=== PATIENT | female | born 1965 | race African-American/Black ===

== ENCOUNTER 2016-10-03 10:29 | Emergency (ER) | payer OTHER ==
[~2016-10-03] VITALS: Ht 167.6 cm; Wt 97.0 kg
[~2016-10-03 10:29] MED LIST: LIDODERM 5% P1 PATCH TD; NAPROXEN500 MG PO
[2016-10-03 10:30] VITALS: BP 178/85
[2016-10-03 13:38] LABS: HEMATOCRIT 42.1 % (36.0-46.0); MCH 29.8 PG (29.0-34.0); MCHC 34.2 G/DL (30.0-36.0); MEAN PLAT.VOLUME 11.4 uM^3 (9.5-12.4); PLATELET COUNT 227 K/uL (156-360); RBC DIS.WIDTH-CV 13.8 % (11.8-14.6); RBC DIS.WIDTH-SD 43.5 % (39-53); RED BLOOD COUNT 4.84 M/uL (3.80-5.20); WHITE BLOOD COUNT 10.4 K/uL (4.1-10.2)
[2016-10-03 13:47] LABS: CHLORIDE 104 mEq/L (99-109); POTASSIUM 3.6 mEq/L (3.7-5.4); SODIUM 139 mEq/L (136-147)
[2016-10-03 13:50] LABS: GLUCOSE 136 mg/dL (70-99)
[2016-10-03 13:51] LABS: ANION GAP 9 MEQ/L (2-14); TOTAL BILIRUBIN 0.4 mg/dL (0.0-1.0)
[2016-10-03 13:52] LABS: SERUM ETHYL ALCOHOL < 10 mg/dL
[2016-10-03 13:53] LABS: ALKALINE PHOSPHATASE 102 IU/L (3-129); GFR ESTIMATE (CALCULATED) > 59 mL/min/
[2016-10-03 13:54] LABS: UREA NITROGEN (BUN) 7 mg/dL (9-23)
[2016-10-03 13:56] LABS: ADD MIUA? NO; BILIRUBIN NEGATIVE; BLOOD NEGATIVE; COLOR YELLOW ((YELLOW)); GLUCOSE (STRIP) NEGATIVE; KETONES TRACE; LEUKOCYTES NEGATIVE; NITRITE NEGATIVE; PROTEIN (STRIP) 30; SPECIFIC GRAVITY 1.016 (1.000-1.030); UCUL ADDED? NO; UROBILINOGEN 0.2 MG/DL (0.2-1.0)
[2016-10-03 13:57] LABS: CREATINE KINASE 48 IU/L (1-294); LIPASE 4 U/L (1.0-51.0)
[2016-10-03 14:06] LABS: AMPHETAMINE NEGATIVE (500 ng/mL); BARBITURATES NEGATIVE (200 ng/mL); BENZODIAZEPINES PRESUMPTIVE POSITIVE (150 ng/mL); COCAINE PRESUMPTIVE POSITIVE (150 ng/mL); INTERNAL CONTROLS VALID? YES; METHADONE NEGATIVE (200 ng/mL); METHAMPHETAMINE NEGATIVE (500 ng/mL); OPIATES (MORPHINE) NEGATIVE (100 ng/mL); OXYCODONE NEGATIVE (100 ng/mL); PHENCYCLIDINE NEGATIVE (25 ng/mL); PROPOXYPHENE NEGATIVE (300 ng/mL); THC CANNABINOIDS PRESUMPTIVE POSITIVE (50 ng/mL); TRICYCLIC ANTIDEPRESSANTS NEGATIVE (300 ng/mL)
[2016-10-03 14:07] LABS: ADD MEDTOX COMMENT Y
[2016-10-03] MEDS ORDERED: ZOFRAN4 MG PO (14:18)
[2016-10-03 15:15] LABS: BENZODIAZEPINES, URINE SCREEN POSITIVE (200 ng/mL)
== END 2016-10-03 15:25 | disposition home or self-care (01) ==
LOC: EME → EDBD 10:29 → EME 15:25
PROVIDERS: Emergency Medicine
DX: F19.10 Other psychoactive substance abuse, uncomplicated (principal); R11.2 Nausea with vomiting, unspecified; Z91.040 Latex allergy status; Z88.1 Allergy status to other antibiotic agents; Z88.0 Allergy status to penicillin; Z91.041 Radiographic dye allergy status
CPT/HCPCS: 80053; 81003; 82550; 83690; 84999; 85027; 99281; 99285; G0480; J2405; J7030